=== PATIENT | male | born 1990 | race Two or more races ===

== ENCOUNTER 2018-01-26 16:58 | Emergency (ER) | payer SELFPAY ==
[2018-01-26] MEDS ORDERED: ONDANSETRON HCL/PF 4 MG/2 ML VIAL ONE (17:52)
[2018-01-26] MEDS ORDERED: THIAMINE HCL 100 MG TABLET ONE (17:52)
[2018-01-26] MEDS ORDERED: THIAMINE HCL 100 MG TABLET PO ONE (18:00)
[2018-01-26] MEDS ORDERED: ONDANSETRON HCL/PF 4 MG/2 ML VIAL IVP ONE (18:00)
[2018-01-26] MEDS ORDERED: IV NS 0.9% 1,000 ML BAG IV ONE (18:00)
== END 2018-01-26 20:32 | disposition home or self-care (01) ==
DX: K70.10 Alcoholic hepatitis without ascites (principal); D69.6 Thrombocytopenia, unspecified; F10.20 Alcohol dependence, uncomplicated; R74.0 Nonspecific elevation of levels of transaminase and lactic acid dehydrogenase [LDH]; F32.9 Major depressive disorder, single episode, unspecified; F17.200 Nicotine dependence, unspecified, uncomplicated

== ENCOUNTER 2018-02-16 20:41 | Emergency (ER) | payer SELFPAY ==
[~2018-02-16] VITALS: Ht 180.3 cm; Wt 81.6 kg
[2018-02-16 21:02] VITALS: BP 141/93
--- NOTE | 2018-02-16 21:10 | NUR ---
CALLED PT FOR ROOM ASSIGNMENT; NOT IN LOBBY
--- NOTE | 2018-02-16 21:20 | NUR ---
STILL CANT FIND PT; NOT EVEN OUTSIDE ER
--- NOTE | 2018-02-16 21:54 | NUR ---
PATIENT NOT FOUND IN ER FOR DUPLEX VENOUS LOWER EXT RIGHT EXAMINATION.
--- NOTE | 2018-02-16 21:54 | NUR ---
PT STILL NOT ANYWHERE IN OR OUT OF ER.
== END 2018-02-16 21:55 | disposition left against medical advice (07) ==
LOC: ER 20:44
DX: Z53.21 Procedure and treatment not carried out due to patient leaving prior to being seen by health care provider (principal)
CPT/HCPCS: A4606; Z7610

== ENCOUNTER 2019-02-10 21:01 | Emergency (ER) | payer SELFPAY ==
[~2019-02-10] VITALS: Ht 180.3 cm; Wt 70.3 kg
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
--- NOTE | 2019-02-10 22:19 | NUR ---
PT APPEARS TO BE RESTING COMFORTABLY WITH NO S/S OF PAIN OR DISTRESS. PT REC'D ANOTHER WARM BLANKET. RESP EVEN AND UNLABORED. NO S/S OF PAIN OR DISTRESS.
--- NOTE | 2019-02-10 22:30 | NUR ---
PT WAS SLEEPING SOUNDLY AND HIS PULSE OX WAS AT 87% ON RA. PT WAS PLACED ON 2L O2 VIA NC AND IS NOW SATURATING AT 99%.
[2019-02-10 22:45] VITALS: BP 99/72
--- NOTE | 2019-02-10 23:39 | NUR ---
ROOMMATE CALLED (JOSE TUTTLE), STATED THAT SHE IS THE [employer] AND THAT SHE WOULD BE ABLE TO HELP GET HIM HOME WHEN HE IS READY. SHE HER SELF IS OUT OF TOWN, BUT TO CALL HER, AND SHE WOULD ARRANGE TO HAVE HIM PICKED UP.
[2019-02-11 01:38] LABS: CREATININE 1.1 mg/dL (0.6-1.3); POTASSIUM 3.9 mmol/L (3.5-5.1)
== END 2019-02-11 03:07 | disposition home or self-care (01) ==
LOC: ER 21:03
DX: F10.129 Alcohol abuse with intoxication, unspecified (principal); F50.2 Bulimia nervosa; R53.1 Weakness; F32.9 Major depressive disorder, single episode, unspecified; R56.9 Unspecified convulsions; Y90.9 Presence of alcohol in blood, level not specified
CPT/HCPCS: 36415; 80048-TC; 82962-TC; 83735-TC

== ENCOUNTER 2019-03-02 20:52 | Emergency (ER) | payer MEDICAID ==
[~2019-03-02] VITALS: Ht 175.3 cm; Wt 77.1 kg
--- NOTE | 2019-03-02 20:55 | NUR ---
[id number] C/O "ETOH, FELL DOWN, R SIDE FACE SWOLLEN" AOX4. +N/V. VSS.
[2019-03-02 21:22] LABS: BASOPHILS % (AUTO) 0.8 % (0.0-2.0); EOSINOPHILS % (AUTO) 0.2 % (0.0-6.0); HEMATOCRIT 33 % (39-51); HEMOGLOBIN 12.1 g/dL (13.5-17.5); LYMPHOCYTES # (AUTO) 1.6 /CMM (0.8-4.8); LYMPHOCYTES % (AUTO) 30.8 % (20.0-44.0); MEAN CORPUSCULAR HGB CONC 36 g/dl (31.0-36.0); MEAN CORPUSCULAR VOLUME 93 fL (80-96); MONOCYTES # (AUTO) 0.5 /CMM (0.1-1.30); MONOCYTES % (AUTO) 9.6 % (2.0-12.0); NEUTROPHILS # (AUTO) 3.1 /CMM (1.8-8.9); NEUTROPHILS % (AUTO) 58.6 % (43.0-81.0); PLATELET COUNT (AUTO) 158 /CMM (150-450); RED BLOOD CELL COUNT(AUTO) 3.59 MIL/uL (4.5-6.0); WHITE BLOOD COUNT (AUTO) 5.4 K/uL (4.3-11.0)
[2019-03-02 21:29] LABS: CALCIUM, SERUM 8.9 mg/dL (8.5-10.1); CARBON DIOXIDE 32 mmol/L (21-32); CHLORIDE 97 mmol/L (98-107); CREATININE 0.9 mg/dL (0.6-1.3); GLUCOSE 108 mg/dL (74-106); SODIUM SERUM 141 mmol/L (136-145); UREA NITROGEN, BLOOD 13 mg/dL (7-18)
[2019-03-02 21:37] LABS: ALANINE AMINOTRANSFERASE 28 U/L (12-78); ALBUMIN 4.1 g/dL (3.4-5.0); ALCOHOL, BLOOD 523 mg/dL (0-0); ALKALINE PHOSPHATASE 61 U/L (46-116); ASPARTATE AMINOTRANSFERASE 67 U/L (15-37); BILIRUBIN,DIRECT 0.2 mg/dL (0.0-0.2); BILIRUBIN,TOTAL 1.3 mg/dL (0.2-1.0); SALICYLATE 1.5 mg/dL (2.8-20.0); TOTAL PROTEIN, SERUM 7.4 g/dL (6.4-8.2)
[2019-03-02 21:38] LABS: ACETAMINOPHEN < 5 ug/ml (10-30)
[2019-03-03] MEDS ORDERED: POTASSIUM CHLORIDE 20 MEQ TAB.PRT.SR PO ONE ×2 (01:58→02:00)
[2019-03-03 02:25] VITALS: BP 122/80
== END 2019-03-03 02:26 | disposition home or self-care (01) ==
LOC: ER 20:54
DX: S90.02XA Contusion of left ankle, initial encounter (principal); S00.212A Abrasion of left eyelid and periocular area, initial encounter; S00.31XA Abrasion of nose, initial encounter; F10.129 Alcohol abuse with intoxication, unspecified; F32.9 Major depressive disorder, single episode, unspecified; R56.9 Unspecified convulsions; R40.4 Transient alteration of awareness; Y90.8 Blood alcohol level of 240 mg/100 ml or more; Z60.2 Problems related to living alone; W18.09XA Striking against other object with subsequent fall, initial encounter; Y93.89 Activity, other specified; Y92.89 Other specified places as the place of occurrence of the external cause; Y99.8 Other external cause status
CPT/HCPCS: 36415; 70450; 70486; 71045; 72125; 73610; 80048; 80076; 80307; 80329; 83690; 85025; 99284; G0480

== ENCOUNTER 2019-03-14 14:23 | Emergency (ER) | payer MEDICAID ==
[~2019-03-14] VITALS: Ht 175.3 cm; Wt 77.1 kg
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
--- NOTE | 2019-03-14 16:32 | NUR ---
PT IN BED ASLEEP, EASILY AROUSABLE BY VOICE. HOOKED TO MONITOR. WILL CONTINUE TO MONITOR.
--- NOTE | 2019-03-14 18:42 | NUR ---
PT IN BED ASLEEP, TUCKED IN BLANKET, EASILY AROUSABLE BY VOICE. HOOKED TO MONITOR. WILL CONTINUE TO MONITOR.
--- NOTE | 2019-03-14 19:20 | NUR ---
REPORT GIVEN TO MILENA WILKINS FOR ZAC
[2019-03-14 19:26] VITALS: BP 108/66
--- NOTE | 2019-03-14 19:42 | NUR ---
Patient discharged to home in stable condition. Written and verbal after care instructions given. Patient verbalizes understanding of instruction.
== END 2019-03-14 19:44 | disposition home or self-care (01) ==
LOC: ER 14:23
DX: F10.129 Alcohol abuse with intoxication, unspecified (principal); F32.9 Major depressive disorder, single episode, unspecified; Z60.2 Problems related to living alone; Y90.9 Presence of alcohol in blood, level not specified
CPT/HCPCS: 99283; J7030

== ENCOUNTER 2019-04-11 20:44 | Inpatient (IN) | payer MEDICAID ==
[~2019-04-11] VITALS: Ht 177.8 cm; Wt 78.0 kg
[2019-04-11] MEDS ORDERED: IV NS 0.9% 1,000 ML BAG IV ONE (21:00)
[2019-04-11 21:30] LABS: BASOPHILS % (AUTO) 0.7 % (0.0-2.0); EOSINOPHILS % (AUTO) 0.5 % (0.0-6.0); HEMATOCRIT 33 % (39-51); HEMOGLOBIN 11.3 g/dL (13.5-17.5); LYMPHOCYTES # (AUTO) 0.6 /CMM (0.8-4.8); LYMPHOCYTES % (AUTO) 14.4 % (20.0-44.0); MEAN CORPUSCULAR HGB CONC 35 g/dl (31.0-36.0); MEAN CORPUSCULAR VOLUME 98 fL (80-96); MONOCYTES # (AUTO) 0.3 /CMM (0.1-1.30); MONOCYTES % (AUTO) 7.2 % (2.0-12.0); NEUTROPHILS % (AUTO) 77.2 % (43.0-81.0); RED BLOOD CELL COUNT(AUTO) 3.33 MIL/uL (4.5-6.0); WHITE BLOOD COUNT (AUTO) 3.9 K/uL (4.3-11.0)
[2019-04-11] MEDS ORDERED: CHLORDIAZEPOXIDE HCL 25 MG CAPSULE PO ONE (21:30)
[2019-04-11 21:34] LABS: PLATELET COUNT (AUTO) 38 /CMM (150-450)
[2019-04-11 21:37] LABS: ALBUMIN 3.6 g/dL (3.4-5.0); BILIRUBIN,DIRECT 0.3 mg/dL (0.0-0.2); BILIRUBIN,TOTAL 1.5 mg/dL (0.2-1.0); CALCIUM, SERUM 8.7 mg/dL (8.5-10.1); POTASSIUM 3.8 mmol/L (3.5-5.1); TOTAL PROTEIN, SERUM 6.7 g/dL (6.4-8.2)
[2019-04-11] MEDS ORDERED: CHLORDIAZEPOXIDE HCL 25 MG CAPSULE ONE (21:37)
[2019-04-11 22:29] LABS: EOSINOPHILS % (MANUAL) 1 % (0-4); LYMPHOCYTES % (MANUAL) 11 % (16-48); MONOCYTES % (MANUAL) 6 % (0-11.0); NEUTROPHILS % (MANUAL) 82 (42-76)
[2019-04-12 00:20] VITALS: BP 114/73
[2019-04-12 00:25] VITALS: BP 114/73
[2019-04-12] MEDS ORDERED: ACETAMINOPHEN 325 MG TABLET PO PRN (00:30)
[2019-04-12] MEDS ORDERED: MAG HYDROX/AL HYDROX/SIMETH 30 ML UDC PO PRN (00:30)
[2019-04-12] MEDS ORDERED: LORAZEPAM INJ 2 MG/ML VIAL IV PRN (00:30)
[2019-04-12] MEDS ORDERED: ONDANSETRON HCL/PF 4 MG/2 ML VIAL IVP PRN (00:30)
[2019-04-12] MEDS: LORAZEPAM INJ 2 MG/ML VIAL IV PRN ×4 (00:57→20:00)
[2019-04-12] MEDS: MORPHINE SULFATE INJ 2 MG/ML DISP.SYRIN IV PRN ×5 (01:53→21:32)
[2019-04-12 04:00] VITALS: BP 126/76
[2019-04-12 06:23] LABS: BASOPHILS % (AUTO) 0.3 % (0.0-2.0); EOSINOPHILS % (AUTO) 0.2 % (0.0-6.0); HEMATOCRIT 33 % (39-51); HEMOGLOBIN 11.6 g/dL (13.5-17.5); LYMPHOCYTES # (AUTO) 0.5 /CMM (0.8-4.8); LYMPHOCYTES % (AUTO) 9.6 % (20.0-44.0); MEAN CORPUSCULAR HGB CONC 36 g/dl (31.0-36.0); MEAN CORPUSCULAR VOLUME 97 fL (80-96); MONOCYTES # (AUTO) 0.5 /CMM (0.1-1.30); MONOCYTES % (AUTO) 9.6 % (2.0-12.0); NEUTROPHILS # (AUTO) 3.9 /CMM (1.8-8.9); NEUTROPHILS % (AUTO) 80.3 % (43.0-81.0); RED BLOOD CELL COUNT(AUTO) 3.36 MIL/uL (4.5-6.0); WHITE BLOOD COUNT (AUTO) 4.9 K/uL (4.3-11.0)
[2019-04-12 06:37] LABS: PLATELET COUNT (AUTO) 37 /CMM (150-450)
[2019-04-12 06:56] LABS: ALBUMIN 3.6 g/dL (3.4-5.0); BILIRUBIN,TOTAL 1.9 mg/dL (0.2-1.0); CALCIUM, SERUM 8.8 mg/dL (8.5-10.1); MAGNESIUM 1.6 mg/dL (1.8-2.4); PHOSPHORUS 3.2 mg/dL (2.5-4.9); POTASSIUM 3.6 mmol/L (3.5-5.1); TOTAL PROTEIN, SERUM 6.6 g/dL (6.4-8.2)
[2019-04-12] MEDS: PANTOPRAZOLE 40 MG TABLET.DR PO SCH (07:53)
[2019-04-12 08:35] VITALS: BP 148/85
[2019-04-12 08:40] LABS: LYMPHOCYTES % (MANUAL) 13 % (16-48); MONOCYTES % (MANUAL) 8 % (0-11.0); NEUTROPHILS % (MANUAL) 79 (42-76)
[2019-04-12] MEDS: FOLIC ACID 1 MG TABLET PO SCH (09:09)
[2019-04-12] MEDS: THIAMINE HCL 100 MG TABLET PO SCH (09:09)
[2019-04-12] MEDS: MULTIVITAMINS,THERAGRAN 1 UDTAB TABLET PO SCH (09:09)
[2019-04-12] MEDS: Magnesium 1GM/D5W 100ML PREMIX 100 ML IV SCH ×2 (10:29→11:47)
[2019-04-12 16:25] VITALS: BP 115/71
[2019-04-12 20:51] VITALS: BP 130/81
[2019-04-13] MEDS: MORPHINE SULFATE INJ 2 MG/ML DISP.SYRIN IV PRN ×3 (01:33→10:07)
[2019-04-13] MEDS: PANTOPRAZOLE 40 MG TABLET.DR PO SCH (07:02)
[2019-04-13 08:00] VITALS: BP 129/91
[2019-04-13] MEDS: LORAZEPAM INJ 2 MG/ML VIAL IV PRN (08:41)
[2019-04-13] MEDS: MULTIVITAMINS,THERAGRAN 1 UDTAB TABLET PO SCH (10:10)
[2019-04-13] MEDS: THIAMINE HCL 100 MG TABLET PO SCH (10:11)
[2019-04-13] MEDS: FOLIC ACID 1 MG TABLET PO SCH (10:11)
== END 2019-04-13 13:15 | disposition home or self-care (01) | DRG 816 ==
LOC: ER 20:50 → TELE 22:26 → MED 04-12 13:06
DX: T51.0X1A Toxic effect of ethanol, accidental (unintentional), initial encounter (principal); D61.818 Other pancytopenia; R56.9 Unspecified convulsions; K70.0 Alcoholic fatty liver; Y92.89 Other specified places as the place of occurrence of the external cause; F10.239 Alcohol dependence with withdrawal, unspecified; Y90.0 Blood alcohol level of less than 20 mg/100 ml; K80.20 Calculus of gallbladder without cholecystitis without obstruction; F32.9 Major depressive disorder, single episode, unspecified
CPT/HCPCS: 36415; 70450-TC; 76705-TC; 80048-TC; 80053-TC; 80076-TC; 83690-TC; 83735-TC; 84100-TC; 85025-TC; 86850-TC; 87081-TC; G0378; G0480; J2060; J2270; J2405; J3475; J7030; J7050